=== PATIENT | female | born 1955 | race Caucasian/White ===

== ENCOUNTER → 2016-07-14 | Outpatient (CLI) | payer BC ==
--- NOTE | 2016-07-14 16:19 | DI ---
XR FOOT COMPLETE MIN 3VW WB,07/14/2016 2:25 PM: Clinical History: Right foot pain. Previous Exam: None at this facility. Findings: 3 weightbearing views of the right foot are obtained, and demonstrate anatomic alignment without frac tures. There is a hallux valgus deformity of the right first metatarsophalangeal joint. There is some degenerative osteophyte formation noted as well. There is mild soft tissue swelling. Impression: Degenerative changes of the right first metatarsophalangeal joint otherwise unremarkable.
== END ==
LOC: MOB RAD 14:28
PROVIDERS: ATTEND Podiatrist Foot & Ankle Surgery
DX: M79.671 Pain in right foot (principal); M79.89 Other specified soft tissue disorders; M84.374A Stress fracture, right foot, initial encounter for fracture; M19.071 Primary osteoarthritis, right ankle and foot; Y93.01 Activity, walking, marching and hiking
CPT/HCPCS: 73630